=== PATIENT | female | born 1945 | race Caucasian/White ===

== ENCOUNTER 2017-08-03 16:22 | Emergency (ER) | payer MEDICARE, OTHER ==
[2017-08-03 16:44] VITALS: BP 135/51
--- NOTE | 2017-08-03 16:49 | UC ---
Skin Complaint HPI - HPI Summary HPI Summary: 71 yo female presents with painful rash to left neck/ear noticed two days ago. Today had blistering. She tells me that she has had shingles in the past and this feels the same. Denies fever, chills, decreased hearing, ringing in the ear. - History of Current Complaint Chief Complaint: UCRash Time Seen by Provider: 08/03/17 16:33 Stated Complaint: SKIN COMPLAINT Hx Obtained From: Patient Onset/Duration: Gradual Onset Skin Exposure Onset/Duration: Days Ago Timing: Constant Onset Severity: Mild Current Severity: Moderate Pain Intensity: 5 Pain Scale Used: 0-10 Numeric - Allergy/Home Medications Allergies/Adverse Reactions: Allergies Allergy/AdvReac Type Severity Reaction Status Date / Time Sulfa (Sulfonamide Allergy Rash Verified 08/03/17 16:45 Antibiotics) Home Medications: Home Medications Carbamazepine [Tegretol] 200 mg PO BID 08/03/17 [History Confirmed 08/03/17] Docusate Sodium 100 mg PO DAILY 08/03/17 [History Confirmed 08/03/17] Levothyroxine TAB* [Synthroid TAB*] 100 mcg PO DAILY 08/03/17 [History Confirmed 08/03/17] Pitavastatin Calcium [Livalo] 2 mg PO QPM 08/03/17 [History Confirmed 08/03/17] Review of Systems Constitutional: Negative Skin: Rash Eyes: Negative ENT: Negative Respiratory: Negative Cardiovascular: Negative Gastrointestinal: Negative Neurovascular: Negative Neurological: Negative Psychological: Negative All Other Systems Reviewed And Are Negative: Yes PMH/Surg Hx/FS Hx/Imm Hx Endocrine History: Hypothyroidism, Dyslipidemia - Surgical History Surgical History: Yes Surgery Procedure, Year, and Place: hysterectomy - Family History Known Family History: Positive: Unknown - Social History Occupation: Retired Lives: With Family Alcohol Use: None Substance Use Type: None Smoking Status (MU): Never Smoked Tobacco Physical Exam - Summary Physical Exam Summary: GENERAL: NAD. WDWN. No pain distress. SKIN: Erythematous and blister-like rash behind left ear extending to tragus and left neck. Mild drainage behind ear. Moderate TTP. Does not cross midline. HEENT: Head: AT/NC. Eyes: EOM intact. Conjunctiva clear without inflammation or discharge. Ears: Hearing grossly normal. Right ear: TM without erythema and bulging. No canal edema or drainage. No lesions within the ear canal. NECK: Supple. Nontender. No lymphadenopathy. CHEST: CTAB. No r/r/w. No accessory muscle use. Breathing comfortably and in no distress. CV: RRR. Without m/r/g. NEURO: Alert. CN II-XII grossly intact. Face symmetric and without drooping. PSYCH: Age appropriate behavior. Triage Information Reviewed: Yes Vital Signs: Initial Vital Signs Temp 97.7 F 08/03/17 16:35 Pulse 71 08/03/17 16:35 Resp 18 08/03/17 16:35 BP 135/51 08/03/17 16:35 Pulse Ox 99 08/03/17 16:35 Course/Dx - Course Course Of Treatment: Shingles left ear/neck. She currently sees ENT in [place] and last saw him 1 year ago for ear tubes. I advised her to seek f/u with him on Sunday or go to the ED if she develops hearing difficulty or ringing in her left ear. She wishes to continue with tylenol for pain. Valacyclovir for shingles. - Diagnoses Provider Diagnoses: Shingles left ear/neck Discharge - Sign-Out/Discharge Documenting (check all that apply): Discharge/Admit/Transfer - Discharge Plan Condition: Stable Disposition: HOME Prescriptions: Mupirocin 2% CREAM* [Bactroban 2% CREAM*] 1 applic TOPICAL BID #1 tube Valacyclovir HCl [Valacyclovir] 1,000 mg PO TID #21 tab Patient Education Materials: Shingles (ED) Referrals: Yan Hernandez MD [Primary Care Provider] - Additional Instructions: If you develop a fever, shortness of breath, chest pain, new or worsening symptoms - please call your PCP or go to the ED. 1) Please schedule a follow up with your ENT doctor as soon as possible for the shingles around your ear - Billing Disposition and Condition Condition: STABLE Disposition: HOME
== END 2017-08-03 17:13 | disposition home or self-care (01) ==
LOC: UCCORT 16:22
DX: B02.8 Zoster with other complications (principal); B02.9 Zoster without complications; Z88.2 Allergy status to sulfonamides
CPT/HCPCS: 99212; G0463

== ENCOUNTER 2017-11-01 16:44 | Emergency (ER) | payer MEDICARE, OTHER ==
[2017-11-01 17:34] VITALS: BP 131/43
--- NOTE | 2017-11-01 18:05 | UC ---
Skin Complaint HPI - HPI Summary HPI Summary: here for evaluation of 2 day old ecchymosis in the right upper arm, which likely occurred when she leaned forward in her wheelchair to close a bottom drresser drawer, and her arm likely caught on a chair. Has had a mild increase in swelling, but not significant pain. Bruises easily, chronic use of prednisone for treatment of MS. No anticoagulants. No other bleeding, no oral bleeding, no blood with stools or urine, and bruising is focal, although she also has small ecchymoses on the left upper arm. - History of Current Complaint Chief Complaint: UCUpperExtremity Time Seen by Provider: 11/01/17 17:46 Stated Complaint: RT ARM CONCERN Hx Obtained From: Patient Onset/Duration: Gradual Onset, Lasting Days - 2 Skin Exposure Onset/Duration: Days Ago - 2 Onset Severity: Moderate Current Severity: Moderate Pain Intensity: 1 Location: Discrete Aggravating Factor(s): Touch Alleviating Factor(s): Nothing Associated Signs & Symptoms: Positive: Tenderness Related History: Trauma - Allergy/Home Medications Allergies/Adverse Reactions: Allergies Allergy/AdvReac Type Severity Reaction Status Date / Time Sulfa (Sulfonamide Allergy Rash Verified 11/01/17 17:29 Antibiotics) Review of Systems Cardiovascular: Other - high cholesterol being treated. Gastrointestinal: Negative Neurological: Other - chronic MS Is Patient Immunocompromised?: Yes All Other Systems Reviewed And Are Negative: No PMH/Surg Hx/FS Hx/Imm Hx Neurological History: Other Other Neurological History: Multiple sclerosis x 40 years. - Surgical History Surgical History: Yes Surgery Procedure, Year, and Place: hysterectomy - Family History Known Family History: Positive: Unknown - Social History Occupation: Retired Lives: With Family Alcohol Use: None Substance Use Type: None Smoking Status (MU): Never Smoked Tobacco - Immunization History Most Recent Tetanus Shot: unsure Physical Exam Triage Information Reviewed: Yes Appearance: Well-Appearing - seated comfortably in electric wheel chair., No Pain Distress Vital Signs: Initial Vital Signs Temp 98.1 F 11/01/17 17:31 Pulse 71 11/01/17 17:31 Resp 18 11/01/17 17:31 BP 131/43 11/01/17 17:31 Pulse Ox 98 11/01/17 17:31 Eyes: Positive: Conjunctiva Clear ENT: Positive: Pharynx normal Dental Exam: Other - upper denture Respiratory: Positive: Lungs clear, Normal breath sounds Cardiovascular: Positive: RRR, No Murmur Musculoskeletal Exam: Other - No tenderness shoulder, humerus without point tenderness. Neurological Exam: Other - lower extremity weakness, not evaluated but by hx. Psychological Exam: Normal Skin Exam: Other - ecchymosis upper right arm, about midway down measuring 14 x 7 cm. Mild swelling. Course/Dx - Course Course Of Treatment: reassurance--traumatic ecchymosis, should resolve without treatment. - Differential Diagnoses - Skin Complaint Differential Diagnoses: Other - ecchymosis, humerus fracture - Diagnoses Provider Diagnoses: ecchymosis right UE Discharge - Sign-Out/Discharge Documenting (check all that apply): Patient Departure - Discharge Plan Condition: Stable Disposition: HOME Patient Education Materials: Hematoma (ED) Referrals: Yan Hernandez MD [Primary Care Provider] - Additional Instructions: The bruising is most likely the result of trauma, and should resolve without intervention. Warm packs might help. You might develop a bit more swelling, but if there is significant increase in swelling, I suggest a re-evaluation. - Billing Disposition and Condition Condition: STABLE Disposition: Home
== END 2017-11-01 18:20 | disposition home or self-care (01) ==
LOC: UCCORT 16:44
DX: S40.021A Contusion of right upper arm, initial encounter (principal); W22.8XXA Striking against or struck by other objects, initial encounter; Y93.89 Activity, other specified; Y92.9 Unspecified place or not applicable; Z88.2 Allergy status to sulfonamides; G35 Multiple sclerosis
CPT/HCPCS: 99211; G0463